=== PATIENT | male | born 1995 | race Two or more races ===

== ENCOUNTER 2022-09-21 14:57 | Emergency (ER) | payer OTHER ==
[~2022-09-21] VITALS: Ht 175.3 cm; Wt 115.5 kg
[2022-09-21] MEDS ORDERED: LIDOCAINE 1% HCL (LOCAL ANESTH.) INJ 20ML MDV ONE (15:09)
[2022-09-21] MEDS ORDERED: LIDOCAINE 1% HCL (LOCAL ANESTH.) INJ 20ML MDV IJ ONE (15:15)
[2022-09-21 15:17] VITALS: PULSE 95; RESP 20; O2SAT 100
[2022-09-21] MEDS ORDERED: TETANUS-DIPTH-ACEL PERTUSSIS 0.5ML SYR Tdap IM ONE (15:30)
[2022-09-21] MEDS ORDERED: BACITRACIN TOP OINT 1 UD PKG TOP ONE (15:45)
[2022-09-21] MEDS ORDERED: ACET500T58 PO (16:08)
[2022-09-21] MEDS ORDERED: IBUP-1455 PO (16:08)
[2022-09-21] MEDS ORDERED: CEPH500C PO (16:08)
[2022-09-21 16:24] VITALS: BP 124/85; PULSE 88; RESP 19; TEMP 97.9; O2SAT 97
[2022-09-21] MEDS ORDERED: NEOMYCIN-BACITRACIN-POLYM 15GM TOP OINT TOP SCH (22:00)
== END 2022-09-21 16:32 | disposition home or self-care (01) ==
LOC: ER 14:57
DX: S61.210A Laceration without foreign body of right index finger without damage to nail, initial encounter (principal); W22.8XXA Striking against or struck by other objects, initial encounter; Y93.89 Activity, other specified; Y92.098 Other place in other non-institutional residence as the place of occurrence of the external cause; Y99.8 Other external cause status
CPT/HCPCS: 73130; 90471; 90715; 99283; J2001

== ENCOUNTER 2022-12-06 22:22 | Emergency (ER) | payer OTHER ==
[~2022-12-06] VITALS: Ht 175.3 cm; Wt 121.4 kg
[~2022-12-06 22:22] MED LIST: ACET500T58 PO; CEPH500C PO; IBUP-1455 PO
[2022-12-06 23:34] LABS: Urine Bacteria NONE SEEN /hpf (None Seen); Urine Blood Negative /uL (Negative); Urine Clarity HAZY (Clear); Urine Color Yellow (Yellow); Urine Mucus FEW (None Seen); Urine Protein, UAD TRACE (Negative); Urine WBC 3 /hpf (0 - 3); Urine pH 7.5 (5.0-8.0)
[2022-12-06 23:58] LABS: Basophils # (auto) 0 10 ^3/uL (0-0.2); Basophils % (auto) 0.3 % (0.0-2.0); Eosinophils # (auto) 0 10 ^3/uL (0-0.8); Eosinophils % (auto) 0.4 % (0.0-7.0); Hemoglobin 15.9 g/dL (13.5-17.5); Lymphocytes # (auto) 3.8 10 ^3/uL (0.4-5.4); Lymphocytes % (auto) 39.1 % (10.0-50.0); Mean Corpuscular Hemoglobin 31.8 pg (28.0-32.0); Mean Corpuscular Hgb Conc. 33.9 g/dL (32.0-36.0); Mean Corpuscular Volume 93.8 fL (80.0-100.0); Monocytes # (auto) 0.8 10 ^3/uL (0-1.3); Monocytes % (auto) 8.3 % (0.0-12.0); Neutrophils # (auto) 5.1 10 ^3/uL (1.6-8.6); Neutrophils % (auto) 51.9 % (37.0-80.0); Nucleated Red Blood Cells % 0.1 %; Red Blood Cells 5.01 10^6/uL (4.5-5.90); Red Cell Distribution Width 12.5 % (11.8-14.3); White Blood Cell 9.7 10^3/uL (4.4-10.8)
[2022-12-07 00:08] LABS: Alanine Aminotransferase 29 U/L (7-40); Albumin 4.6 g/dL (3.2-4.8); Alkaline Phosphatase 105 U/L (46-116); Anion Gap 5 (5-15); Aspartate Aminotransferase 17 U/L (13-40); BUN/Creatinine Ratio 9.2 (10.0-20.0); Bilirubin, Total 0.7 mg/dL (0.2-1.0); Blood Urea Nitrogen 9 mg/dL (9-23); Calcium 9.5 mg/dL (8.7-10.4); Carbon Dioxide 29 mmol/L (20-30); Chloride 106 mmol/L (98-107); Lipase 43 U/L (12-53); Potassium 3.7 mmol/L (3.5-5.1); Sodium 140 mmol/L (136-145)
[2022-12-07 00:09] LABS: Total Protein 7.4 g/dL (5.7-8.2)
[2022-12-07 00:22] LABS: Glucose 102 mg/dL (74-106)
[2022-12-07 01:30] VITALS: PULSE 86; RESP 16; O2SAT 97
[2022-12-07] MEDS ORDERED: KETOROLAC TROMETH 30 MG/ML 1ML VIAL IV ONE (01:45)
[2022-12-07 03:46] VITALS: BP 133/85; PULSE 85; RESP 12; TEMP 97.4; O2SAT 96
[2022-12-07] MEDS ORDERED: NAP500T GT (04:33)
== END 2022-12-07 05:01 | disposition home or self-care (01) ==
LOC: ER 22:22
DX: S39.011A Strain of muscle, fascia and tendon of abdomen, initial encounter (principal); Z79.899 Other long term (current) drug therapy; X50.0XXA Overexertion from strenuous movement or load, initial encounter; Y93.89 Activity, other specified; Y92.89 Other specified places as the place of occurrence of the external cause; Y99.8 Other external cause status
CPT/HCPCS: 36415; 74177; 80053; 81001; 83690; 85025; 96374; 99285; J1885